=== PATIENT | female | born 1985 | race Caucasian/White ===

== ENCOUNTER 2016-11-02 08:05 | Outpatient (CLI) | payer MEDICAID, OTHER ==
[2016-11-02] MEDS ORDERED: NS 1,000 ML IV SCH (09:00)
[2016-11-02] MEDS ORDERED: VITA100072 PO (09:32)
[2016-11-02] MEDS ORDERED: VITA100T5 PO (09:32)
[2016-11-02] MEDS ORDERED: VITA500046 PO (09:32)
[2016-11-02] MEDS ORDERED: folate PO (09:32)
[2016-11-02] MEDS ORDERED: SYNT100T PO (09:32)
[2016-11-02] MEDS ORDERED: IRON18TA2 PO (09:32)
== END 2016-11-02 11:00 | disposition home or self-care (01) ==
LOC: M INFU 08:05
PROVIDERS: ATTEND Internal Medicine
DX: I95.9 Hypotension, unspecified (principal); Z88.0 Allergy status to penicillin; Z88.8 Allergy status to other drugs, medicaments and biological substances; Z91.013 Allergy to seafood; Z79.899 Other long term (current) drug therapy

== ENCOUNTER 2016-11-09 10:58 | Outpatient (CLI) | payer OTHER ==
[~2016-11-09] VITALS: Ht 161.3 cm; Wt 67.7 kg
[~2016-11-09 10:58] MED LIST: IRON18TA2 PO; NS 1,000 ML IV ONE; SYNT100T PO; VITA100072 PO; VITA100T5 PO; VITA500046 PO; folate PO
== END 2016-11-09 13:50 | disposition home or self-care (01) ==
LOC: M INFU 10:58
PROVIDERS: ATTEND General Practice
DX: I95.9 Hypotension, unspecified (principal); Z88.0 Allergy status to penicillin; Z88.8 Allergy status to other drugs, medicaments and biological substances; Z91.013 Allergy to seafood; Z79.899 Other long term (current) drug therapy

== ENCOUNTER 2016-11-23 13:33 | Outpatient (CLI) | payer OTHER ==
[~2016-11-23 13:33] MED LIST changes: -NS 1,000 ML IV ONE; +NS 1,000 ML IV SCH
== END 2016-11-23 16:10 | disposition home or self-care (01) ==
LOC: M INFU 13:33
PROVIDERS: ATTEND Internal Medicine Nephrology
DX: I95.9 Hypotension, unspecified (principal); F41.9 Anxiety disorder, unspecified; G90.1 Familial dysautonomia [Riley-Day]; A18.01 Tuberculosis of spine; Z88.0 Allergy status to penicillin; Z88.8 Allergy status to other drugs, medicaments and biological substances; Z79.899 Other long term (current) drug therapy

== ENCOUNTER → 2016-11-26 | Outpatient (REF) | payer OTHER ==
[~2016-11-26] MED LIST changes: -NS 1,000 ML IV SCH
== END ==
LOC: M LABDRWAD 09:57
PROVIDERS: ATTEND Physician Assistant Medical
DX: E27.8 Other specified disorders of adrenal gland (principal)

== ENCOUNTER 2016-11-30 13:53 | Outpatient (CLI) | payer OTHER ==
[~2016-11-30 13:53] MED LIST changes: +NS 1,000 ML IV SCH
== END 2016-11-30 16:30 | disposition home or self-care (01) ==
LOC: M INFU 13:53
PROVIDERS: ATTEND Hospitalist
DX: I95.9 Hypotension, unspecified (principal); F41.9 Anxiety disorder, unspecified; G90.1 Familial dysautonomia [Riley-Day]; A18.01 Tuberculosis of spine; D50.9 Iron deficiency anemia, unspecified; Z88.0 Allergy status to penicillin; Z88.8 Allergy status to other drugs, medicaments and biological substances; Z79.899 Other long term (current) drug therapy

== ENCOUNTER 2016-12-08 10:02 | Outpatient (CLI) | payer OTHER ==
[~2016-12-08] VITALS: Ht 160 cm; Wt 67.7 kg
[~2016-12-08 10:02] MED LIST changes: -NS 1,000 ML IV SCH
[2016-12-08] MEDS ORDERED: NS 1,000 ML IV SCH (10:15)
== END 2016-12-08 12:40 | disposition home or self-care (01) ==
LOC: M INFU 10:02
PROVIDERS: ATTEND Internal Medicine
DX: I95.9 Hypotension, unspecified (principal); Z88.0 Allergy status to penicillin; Z88.8 Allergy status to other drugs, medicaments and biological substances; Z79.899 Other long term (current) drug therapy

== ENCOUNTER → 2016-12-14 | Outpatient (REF) | payer OTHER ==
[2016-12-14 21:12] LABS: BASO % 0.4 % (0.0-1.0); EOS # 0.2 K/mm3 (0.0-0.50); EOS % 2.7 % (0.0-3.0); LYMPH # 2.4 K/mm3 (1.5-6.5); LYMPH % 34.3 % (24.0-44.0); MEAN CORPUSCULAR HGB CONC 31.4 g/dl (32.0-36.5); MEAN CORPUSCULAR VOLUME 92.4 fl (80.0-96.0); MONO # 0.4 K/mm3 (0.0-0.8); MONO % 5.8 % (0.0-5.0); NEUTROPHILS # 3.9 K/mm3 (1.8-7.7); NEUTROPHILS % 54.8 % (36.0-66.0); RED CELL DISTRIBUTION WIDTH 13.1 % (11.5-14.5)
[2016-12-14 21:36] LABS: ALBUMIN 3.8 GM/DL (3.2-5.2); ALBUMIN/GLOBULIN RATIO 1.09 (1.00-1.93); ALKALINE PHOSPHATASE 74 U/L (45-117); ALT/SGPT 19 U/L (12-78); ANION GAP 6 MEQ/L (8-16); AST/SGOT 13 U/L (15-37); BILIRUBIN,TOTAL 0.3 MG/DL (0.2-1.0); BLOOD UREA NITROGEN 13 MG/DL (7-18); CARBON DIOXIDE LEVEL 29 MEQ/L (21-32); CHLORIDE LEVEL 104 MEQ/L (98-107); CREATININE FOR GFR 0.73 MG/DL (0.55-1.02); GLOMERULAR FILTRATION RATE > 60.0 (>60); GLUCOSE, FASTING 113 MG/DL (70-105); MAGNESIUM LEVEL 2.5 MG/DL (1.8-2.4); POTASSIUM SERUM 4.4 MEQ/L (3.5-5.1); SODIUM LEVEL 139 MEQ/L (136-145); TOTAL PROTEIN 7.3 GM/DL (6.4-8.2)
== END ==
LOC: M LABDRWAD 20:31
PROVIDERS: ATTEND Family Medicine
DX: G90.1 Familial dysautonomia [Riley-Day] (principal)

== ENCOUNTER 2016-12-15 09:57 | Outpatient (CLI) | payer OTHER ==
[2016-12-15] MEDS ORDERED: NS 1,000 ML IV ONE (10:15)
== END 2016-12-15 12:30 | disposition home or self-care (01) ==
LOC: M INFU 09:57
PROVIDERS: ATTEND Internal Medicine
DX: I95.9 Hypotension, unspecified (principal); K21.9 Gastro-esophageal reflux disease without esophagitis; D50.9 Iron deficiency anemia, unspecified; R00.8 Other abnormalities of heart beat; M54.5 Low back pain; E07.9 Disorder of thyroid, unspecified; Z88.0 Allergy status to penicillin; Z88.8 Allergy status to other drugs, medicaments and biological substances; Z79.899 Other long term (current) drug therapy

== ENCOUNTER 2016-12-22 12:44 | Outpatient (CLI) | payer OTHER ==
[2016-12-22] MEDS ORDERED: NS 1,000 ML IV ONE (13:00)
== END 2016-12-22 15:10 | disposition home or self-care (01) ==
LOC: M INFU 12:44
PROVIDERS: ATTEND Internal Medicine Nephrology
DX: I95.9 Hypotension, unspecified (principal); R00.8 Other abnormalities of heart beat; R07.89 Other chest pain; K21.9 Gastro-esophageal reflux disease without esophagitis; D50.9 Iron deficiency anemia, unspecified; M54.5 Low back pain; F41.9 Anxiety disorder, unspecified; E07.9 Disorder of thyroid, unspecified; Z88.8 Allergy status to other drugs, medicaments and biological substances; Z88.0 Allergy status to penicillin; Z79.899 Other long term (current) drug therapy

== ENCOUNTER → 2017-02-25 | Outpatient (REF) | payer OTHER | LOC: M SMT 17:01 | PROVIDERS: ATTEND Nurse Practitioner Family | DX: R39.89 Other symptoms and signs involving the genitourinary system (principal) ==

== ENCOUNTER → 2017-03-30 | Outpatient (CLI) | payer OTHER ==
[2017-04-01 14:15] LABS: D002-IGE D FARINAE MITE 0.46 kU/L (Class I); E001-IGE CAT EPITHELIUM/DANDER <0.10 kU/L (Class 0); E005-IGE DOG DANDER/HAIR/EPITH <0.10 kU/L (Class 0); G006-IGE TIMOTHY GRASS <0.10 kU/L (Class 0); M002-IGE CLADOSPORIUM herbarum <0.10 kU/L (Class 0); M003-IGE ASPERGILLUS FUMIGATUS <0.10 kU/L (Class 0); M003-IGE D pteronyssinus 0.41 kU/L (Class I); M006-IGE ALTERNARIA alternata <0.10 kU/L (Class 0); T001-IGE MAPLE/BOX ELDER <0.10 kU/L (Class 0); T003-IGE COMMON SILVER BIRCH <0.10 kU/L (Class 0); T007-IGE OAK, WHITE <0.10 kU/L (Class 0); T008-IGE ELM, AMERICAN WHITE <0.10 kU/L (Class 0); T014-IGE COTTONWOOD <0.10 kU/L (Class 0); T015-IGE ASH, WHITE <0.10 kU/L (Class 0); T016-IGE PINE, WHITE <0.10 kU/L (Class 0); W001-IGE RAGWEED, SHORT <0.10 kU/L (Class 0); W009-IGE PLANTAIN,ENGLISH <0.10 kU/L (Class 0); W010-IGE LAMB'S QUARTER <0.10 kU/L (Class 0); W013-IgE COCKLEBUR <0.10 kU/L (Class 0)
== END ==
LOC: M SMT 09:46
PROVIDERS: ATTEND Allergy & Immunology
DX: J30.9 Allergic rhinitis, unspecified (principal)

== ENCOUNTER → 2017-06-03 | Outpatient (CLI) | payer OTHER ==
--- NOTE | 2017-06-03 14:35 | REP ---
Dilator ultrasound including transabdominal, endovaginal and Doppler ultrasound assessment: The bladder is adequately distended. The uterus is enlarged measuring 10.4 x 5.6 by 6.4 cm. The myometrium is homogeneous. The endometrium is upper normal thickness measuring 17.4 mm and is diffusely homogeneous. The ovaries are normal size. The right ovary measures 2.4 1.3 x 1.5 cm. Left ovary measures 4.4-0.1 x 3.6 cm. There are small follicles in each ovary. In addition, there is a 2.5 cm left ovarian complex cyst. There is vascular flow in both ovaries with the Doppler resistive index of the intraparenchymal arteries on the right measuring 0.51 on the left 0.55. There is no free fluid in the pelvis. Impression: There is a 2.5 7 meters complex cyst in the left ovary. The endometrium is upper normal thickness. Otherwise, negative pelvic ultrasound. Signed by Dariel Odom MD 06/03/2017 02:27 P
== END ==
LOC: M SMT 10:48
PROVIDERS: ATTEND Advanced Practice Midwife
DX: N92.0 Excessive and frequent menstruation with regular cycle (principal); N83.292 Other ovarian cyst, left side

== ENCOUNTER → 2017-06-22 | Outpatient (REF) | payer OTHER | LOC: M LAB REF 13:18 | PROVIDERS: ATTEND Advanced Practice Midwife | DX: Z11.3 Encounter for screening for infections with a predominantly sexual mode of transmission (principal); R30.0 Dysuria ==

== ENCOUNTER → 2017-07-14 | Outpatient (REF) | payer OTHER | LOC: M LAB REF 13:40 | PROVIDERS: ATTEND Advanced Practice Midwife | DX: Z01.419 Encounter for gynecological examination (general) (routine) without abnormal findings (principal); Z11.51 Encounter for screening for human papillomavirus (HPV) ==

== ENCOUNTER → 2018-09-01 | Outpatient (REF) | payer BC ==
[~2018-09-01] MED LIST changes: -VITA100T5 PO; +VITA100T59 PO
== END ==
LOC: M LAB REF 16:49
PROVIDERS: ATTEND Advanced Practice Midwife
DX: Z34.81 Encounter for supervision of other normal pregnancy, first trimester (principal)

== ENCOUNTER 2018-09-26 15:23 | Outpatient (CLI) | payer BC ==
[~2018-09-26] VITALS: Ht 162.6 cm; Wt 78.2 kg
[~2018-09-26 15:23] MED LIST changes: +LR 1,000 ML IV ONE
[2018-09-26 15:45] VITALS: BP 134/68
[2018-09-26 17:25] VITALS: BP 108/60
== END 2018-09-26 17:15 | disposition home or self-care (01) ==
LOC: M INFU 15:23
PROVIDERS: ATTEND Advanced Practice Midwife
DX: O21.0 Mild hyperemesis gravidarum (principal); Z3A.00 Weeks of gestation of pregnancy not specified

== ENCOUNTER 2018-10-03 15:39 | Outpatient (CLI) | payer BC ==
[~2018-10-03] VITALS: Ht 160 cm; Wt 78.2 kg
[~2018-10-03 15:39] MED LIST changes: -LR 1,000 ML IV ONE
[2018-10-03 16:45] VITALS: BP 109/56
[2018-10-03] MEDS ORDERED: LR 1,000 ML IV SCH (17:00)
[2018-10-03 18:01] VITALS: BP 106/56
== END 2018-10-03 18:05 | disposition home or self-care (01) ==
LOC: M INFU 15:39
PROVIDERS: ATTEND Advanced Practice Midwife
DX: O21.0 Mild hyperemesis gravidarum (principal); Z3A.00 Weeks of gestation of pregnancy not specified

== ENCOUNTER → 2018-10-24 | Outpatient (CLI) | payer BC ==
[2018-10-24 19:18] LABS: HEMATOCRIT 35.5 % (36.0-47.0); HEMOGLOBIN 11.5 g/dl (12.0-15.5); MEAN CORPUSCULAR HGB CONC 32.4 g/dl (32.0-36.5); MEAN CORPUSCULAR VOLUME 89.4 fl (80.0-96.0); PLATELET COUNT, AUTOMATED 234 10^3/uL (150-450); RED BLOOD COUNT 3.97 10^6/uL (4.00-5.40); WHITE BLOOD COUNT 8.8 10^3/uL (4.0-10.0)
[2018-10-24 19:38] LABS: FREE T4 1.35 NG/DL (0.76-1.46); THYROID STIMULATING HORMONE 1.29 uIU/ML (0.358-3.740)
== END ==
LOC: M SMT 13:39
PROVIDERS: ATTEND Specialist
DX: I47.9 Paroxysmal tachycardia, unspecified (principal)

== ENCOUNTER → 2018-11-13 | Outpatient (CLI) | payer BC ==
--- NOTE | 2018-11-14 02:54 | REP ---
Clinical: Anatomical evaluation. Comparison: None . Findings: Examination demonstrates a single live intrauterine in cephalic presentation. motion is identified by technologist. Placenta is noted posterior and grade air grade one without evidence for placenta previa or abruption. Amniotic fluid volume is normal. Cervix measures 4.8 cm in length and appears closed. Nuchal cord noted. Gestational age by LMP 20 weeks 2 days with CARO 03/31/2019 . Gestational age by current measurements 20 weeks 1 day with CARO 04/01/2019 . FHR equals 157 beats per minute. BPD 4.8 cm 20 weeks 3 days HC 17.9 cm 20 weeks 2 days AC 15.9 cm 21 weeks 0 days FL 3.3 cm 20 weeks 1 day HL 3.3 cm 20 weeks 6 days HC/AC ratio 1.12 Estimated weight 365 grams ( 57 percentile). Anatomical assessment demonstrates normal structures including cranium, choroid plexus, cavum, cerebellum/posterior fossa, facial features, lungs, four-chamber heart/ventricular outflow tracts, diaphragm, stomach, cord insertion/three-vessel cord, kidneys/bladder, spine, and extremities. Impression: Single live intrauterine in cephalic presentation demonstrating appropriate interval growth. 2. Nuchal cord noted. 3. Anatomical assessment is complete and normal. Electronically Signed by Guille Hyatt MD 11/14/2018 02:44 A
== END ==
LOC: M SMT 13:54
PROVIDERS: ATTEND Specialist
DX: Z36.89 Encounter for other specified antenatal screening (principal); Z3A.20 20 weeks gestation of pregnancy

== ENCOUNTER → 2018-11-21 | Outpatient (REF) | payer BC | LOC: M LAB REF 17:00 | PROVIDERS: ATTEND Obstetrics & Gynecology | DX: Z34.82 Encounter for supervision of other normal pregnancy, second trimester (principal); Z3A.00 Weeks of gestation of pregnancy not specified ==